=== PATIENT | female | born 1950 | race Caucasian/White ===

== ENCOUNTER 2018-07-01 14:18 | Inpatient (IN) ==
[2018-07-01] MEDS ORDERED: Ibuprofen 600 MG Tablet PO ONE (14:40)
[2018-07-01] MEDS ORDERED: Sod Chloride 0.9% Inj 1,000 ML IV.SIG ONE ×3 (14:40→15:55)
[2018-07-01 15:11] LABS: Baso % (Auto) 0.3 % (0.0-2.0); Eos # (Auto) 0.1 th/mm3 (0.0-0.4); Hematocrit 31.2 % (35.0-46.0); Hemoglobin 9.8 gm/dL (11.6-15.3); Lymph # (Auto) 1.1 th/mm3 (1.0-4.8); Lymph % (Auto) 10.9 % (9.0-44.0); Mean Corpuscular HGB Conc 31.4 % (32.0-36.0); Mean Corpuscular Hemoglobin 21.3 pg (27.0-34.0); Mean Platelet Volume 8.5 fL (7.0-11.0); Mono # (Auto) 0.7 th/mm3 (0.0-0.9); Mono % (Auto) 6.5 % (0.0-8.0); Neut # (Auto) 8.4 th/mm3 (1.8-7.7); Neut % (Auto) 81.3 % (16.0-70.0); Platelet Count 463 th/mm3 (150-450); Red Blood Count 4.59 mil/mm3 (4.00-5.30); White Blood Count 10.3 th/mm3 (4.0-11.0)
--- NOTE | 2018-07-01 15:11 | ED ---
HPI General Chief Complaint: Fall Stated Complaint: fell/hit head(-)loc/sob/rt/knee bruised @ noon Time Seen by Provider: 07/01/18 14:33 Source: patient and family Mode of arrival: ambulatory Limitations: no limitations and altered mental status History of Present Illness HPI Narrative: Patient experienced a mechanical fall today landing on the right knee and into the region of the right face. Multiple teeth were lost association with the fall. Patient complains of pain in the right upper lip and forehead. Patient also complains of pain in the right knee. There is no loss of consciousness. The patient has Parkinson's disease and is typically unsteady on feet. The sister provides much of the history. His sister also notes the patient evidently quit drinking alcohol about 1 month ago and has been laying in bed basically every single day. Patient has lost significant body weight. Additional complaints at the bedside include anxiety. MD complaint: fall and other Onset (ago): hour(s) (3.0) Fall from: standing Fall witnessed: yes, by family Place fall occurred: home Loss of consciousness: none Length of LOC: second(s) Prolonged down time: no Symptoms prior to fall: none Context: tripped/slipped and other (unstable gait 2/2 parkinson's disease) Location of injury: head, face and mouth Location of injury - extremities: Right: knee Severity: mild Related Data Home Medications Medication Instructions Recorded Confirmed Unable to Obtain Home Meds 07/01/18 07/01/18 Allergies Allergy/AdvReac Type Severity Reaction Status Date / Time aspirin Allergy Mild sick to Verified 07/01/18 14:49 stomach oxycodone Allergy Mild sick to Verified 07/01/18 14:49 stomach Penicillins Allergy Hives Verified 07/01/18 14:49 Review of Systems ROS Unobtainable unobtainable due to mental condition PMFSH Medical History Medical History Asthma (Acute) CVA (cerebral vascular accident) (Acute) Parkinson disease (Acute) Social History Social History Substance History: No History of Abuse Second Hand Smoke Exposure: No Smoking Status: Former smoker How Often Do You Have a Drink Containing Alcohol: Monthly or less Recent Travel in [facility] within the Last 8 Weeks: No Recent Out of Country Travel within the Last 8 Weeks: No Immunization History Tetanus Immunization: Unsure Hx Influenza Vaccine This Season: Yes Exam Narrative Exam Narrative: GENERAL: This 7-year-old female pleasant well-nourished well- developed, anxious, history provided mainly by family members SKIN: Focused skin assessment warm/dry. HEAD: Normocephalic. Minimal contusion about the right forehead. EYES: Pupils equal and round. No scleral icterus. No injection or drainage. ENT: Dental fractures are noted in the right upper premolar and molar region. Ecchymosis about the right upper lip. NECK: Trachea midline. No JVD. CARDIOVASCULAR: Tachycardia. Regular rhythm. RESPIRATORY: No accessory muscle use. Clear to auscultation. Breath sounds equal bilaterally. GASTROINTESTINAL: Abdomen soft, non-tender, nondistended. Hepatic and splenic margins not palpable. MUSCULOSKELETAL: Ecchymosis about the patella on the right side. No gross deformity otherwise NEUROLOGICAL: Minimal generalized tremor. Answers questions. No focal cranial nerve deficit. Moving all extremities. PSYCHIATRIC: Somewhat anxious. Cooperative. Course Initial Documented Vital Signs Temperature 98.3 F 07/01/18 14:25 Pulse Rate 74 07/01/18 14:25 Respiratory Rate 18 07/01/18 14:25 Blood Pressure 146/106 H 07/01/18 14:25 Pulse Oximetry 98 07/01/18 14:25 Last Documented Vital Signs Temperature 98.3 F 07/01/18 14:25 Pulse Rate 125 H 07/01/18 15:35 Respiratory Rate 20 07/01/18 15:35 Blood Pressure 168/91 H 07/01/18 15:35 Pulse Oximetry 97 07/01/18 15:35 Critical Care Time Critical Care Time: Yes Total Critical Care Time: 45 Attestation: Aggregate critical care time was 45 minutes. Time to perform other separately billable procedures was not included in the critical care time. My time did not include minutes spent treating any other patients simultaneously or on activities that did not directly contribute to the patient's treatment. The services I provided to this patient were to treat and/or prevent clinically significant deterioration that could result in: Cardiopulmonary arrest, metabolic disarray, arrhythmia I provided critical care services requiring my management, as noted below: Chart data review, documentation time, medication orders and management, vital sign assessments/reviewing monitor data, ordering and reviewing lab tests, ordering and interpreting/reviewing x-rays and diagnostic studies, care of the patient and discussion of the patient with the admitting physicians. Medical Decision Making MDM Narrative Medical decision making narrative: The patient returned from CT scans slightly increased in terms of anxiety. The heart rate has hovered around 120. The patient received 1 mg of Ativan which seems to have had almost a paradoxical effect. New complaints of cephalgia reported upon return. 0.5 mg hydromorphone ordered given age and concomitant anxiety. Unexpected marked hyperglycemia observed without anion gap acidosis. IV fluids started. ABG and beta hydroxybutyrate added on. Tachypnea with deep breaths observed at bedside at about 3:45 PM. We will continue to monitor closely. Chest x-ray completed at 4 PM. Will follow closely. Case discussed with hospitalist service and we will call back with results of ABG chest x-ray and beta hydroxybutyrate with plan for disposition pending results. ABG shows a pH of 7.53 with a PCO2 of 20 and bicarb of 17. Discussed with Dr. Khalil for [facility]. Pt to be placed in ICU. Lab Data Lab results reviewed: Yes I reviewed the patient's lab results. Lab results narrative: Anion gap is 14 Urinalysis shows no UTI EKG shows a sinus tachycardia rate of 116 ABG 7.53/ -5.9 po2 106 on RA Result diagrams: 07/01/18 15:00 07/01/18 15:00 Lab Results 07/01/18 07/01/18 07/01/18 Range/Units 15:00 15:00 15:33 CBC w Diff Slide review pending WBC 10.3 (4.0-11.0) th/mm3 RBC 4.59 (4.00-5.30) mil/mm3 Hgb 9.8 L (11.6-15.3) gm/dL Hct 31.2 L (35.0-46.0) % MCV 68.0 L (80.0-100.0) fL MCH 21.3 L (27.0-34.0) pg MCHC 31.4 L (32.0-36.0) % RDW 17.0 (11.6-17.2) % Plt Count 463 H (150-450) th/mm3 MPV 8.5 (7.0-11.0) fL Neut % (Auto) 81.3 H (16.0-70.0) % Lymph % (Auto) 10.9 (9.0-44.0) % [place] % (Auto) 6.5 (0.0-8.0) % Eos % (Auto) 1.0 (0.0-4.0) % Baso % (Auto) 0.3 (0.0-2.0) % Neut # (Auto) 8.4 H (1.8-7.7) th/mm3 Lymph # (Auto) 1.1 (1.0-4.8) th/mm3 [place] # (Auto) 0.7 (0.0-0.9) th/mm3 Eos # (Auto) 0.1 (0.0-0.4) th/mm3 Baso # (Auto) 0.0 (0.0-0.2) th/mm3 WBC Differential . Diff Scan Auto diff confirmed Differential Comment . Platelet Estimate High H (Normal) Platelet Morphology Normal (Normal) RBC Morphology Normal (Normal) Puncture Site Patient Temperature O2 Saturation (90-100) % ABG pH (7.380-7.420) ABG pCO2 (38-42) mmHg ABG pO2 (61-120) mmHg ABG HCO3 (22-26) mmol/L ABG O2 Content (12.0-20.0) Vol % ABG Base Excess (-2-2) mmol/L ABG Methemoglobin (0-2) % Todd Test Hemoglobin (12.0-16.0) G/DL Carboxyhemoglobin (0-4) % O2 Delivery Device Inspired O2 % Critical Value Sodium 122 L* (136-145) meq/L Potassium 3.4 L (3.5-5.1) meq/L Chloride 88 L (98-107) meq/L Carbon Dioxide 20.2 L (21.0-32.0) meq/L Anion Gap 14 (5-15) meq/L BUN 14 (7-18) mg/dL Creatinine 1.00 (0.50-1.00) mg/dL Estimated GFR 55 L (>89) mL/min Random Glucose 575 H* (74-106) mg/dL Calcium 8.8 (8.5-10.1) mg/dL Magnesium 1.7 (1.5-2.5) mg/dL Total Bilirubin 0.3 (0.2-1.0) mg/dL AST 15 (15-37) U/L ALT 28 (10-53) U/L Alkaline Phosphatase 203 H (45-117) U/L Total Creatine Kinase 51 (26-192) U/L Troponin I Less than 0.02 L (0.02-0.05) ng/mL Total Protein 8.1 (6.4-8.2) g/dL Albumin 3.5 (3.4-5.0) g/dL Beta-Hydroxybutyric Acd (0.00-0.39) mmol/L TSH 2.630 (0.358-3.740) uIU/mL Ur Collection Type Clean catch Urine Color Yellow (Yellw/Straw) Urine Clarity Clear (Clear) Urine pH 7.0 (5.0-8.5) Ur Specific [place] Less/equal 1.005 (1.002-1.035) Urine Protein 30 H (Neg-Trace) mg/dL Urine Glucose (UA) 1000 or greater H (Negative) mg/dL Urine Ketones 15 H (Negative) mg/dL Urine Occult Blood Trace (Negative) Urine Nitrate Negative (Negative) Urine Bilirubin Negative (Negative) Urine Urobilinogen 0.2 (Less than 2) mg/dL Ur Leukocyte Esterase Negative (Negative) Urine WBC 0-5 (0-5) /hpf Ur Squamous Epith Cells 0-5 (0-5) /hpf Micro UA Comment Culture not ind Urine Culture Comments Culture not ind Serum Alcohol (0-5) mg/dL 07/01/18 07/01/18 Range/Units 16:06 16:14 CBC w Diff WBC (4.0-11.0) th/mm3 RBC (4.00-5.30) mil/mm3 Hgb (11.6-15.3) gm/dL Hct (35.0-46.0) % MCV (80.0-100.0) fL MCH (27.0-34.0) pg MCHC (32.0-36.0) % RDW (11.6-17.2) % Plt Count (150-450) th/mm3 MPV (7.0-11.0) fL Neut % (Auto) (16.0-70.0) % Lymph % (Auto) (9.0-44.0) % [place] % (Auto) (0.0-8.0) % Eos % (Auto) (0.0-4.0) % Baso % (Auto) (0.0-2.0) % Neut # (Auto) (1.8-7.7) th/mm3 Lymph # (Auto) (1.0-4.8) th/mm3 [place] # (Auto) (0.0-0.9) th/mm3 Eos # (Auto) (0.0-0.4) th/mm3 Baso # (Auto) (0.0-0.2) th/mm3 WBC Differential Diff Scan Differential Comment Platelet Estimate (Normal) Platelet Morphology (Normal) RBC Morphology (Normal) Puncture Site Right radial Patient Temperature 98.6 O2 Saturation 96 (90-100) % ABG pH 7.53 H* (7.380-7.420) ABG pCO2 20 L* (38-42) mmHg ABG pO2 106 (61-120) mmHg ABG HCO3 17 L (22-26) mmol/L ABG O2 Content 12.6 (12.0-20.0) Vol % ABG Base Excess -5.9 L (-2-2) mmol/L ABG Methemoglobin 1.2 (0-2) % Todd Test Present Hemoglobin 9.2 L (12.0-16.0) G/DL Carboxyhemoglobin 2.0 (0-4) % O2 Delivery Device Room air Inspired O2 21 % Critical Value Yes Sodium (136-145) meq/L Potassium (3.5-5.1) meq/L Chloride (98-107) meq/L Carbon Dioxide (21.0-32.0) meq/L Anion Gap (5-15) meq/L BUN (7-18) mg/dL Creatinine (0.50-1.00) mg/dL Estimated GFR (>89) mL/min Random Glucose (74-106) mg/dL Calcium (8.5-10.1) mg/dL Magnesium (1.5-2.5) mg/dL Total Bilirubin (0.2-1.0) mg/dL AST (15-37) U/L ALT (10-53) U/L Alkaline Phosphatase (45-117) U/L Total Creatine Kinase (26-192) U/L Troponin I (0.02-0.05) ng/mL Total Protein (6.4-8.2) g/dL Albumin (3.4-5.0) g/dL Beta-Hydroxybutyric Acd 1.38 H (0.00-0.39) mmol/L TSH (0.358-3.740) uIU/mL Ur Collection Type Urine Color (Yellw/Straw) Urine Clarity (Clear) Urine pH (5.0-8.5) Ur Specific [place] (1.002-1.035) Urine Protein (Neg-Trace) mg/dL Urine Glucose (UA) (Negative) mg/dL Urine Ketones (Negative) mg/dL Urine Occult Blood (Negative) Urine Nitrate (Negative) Urine Bilirubin (Negative) Urine Urobilinogen (Less than 2) mg/dL Ur Leukocyte Esterase (Negative) Urine WBC (0-5) /hpf Ur Squamous Epith Cells (0-5) /hpf Micro UA Comment Urine Culture Comments Serum Alcohol Less than 3 (0-5) mg/dL Imaging Data Radiologist's impression: Chest X-Ray 07/01/18 14:40 CONCLUSION: No acute cardiopulmonary disease. Head CT 07/01/18 14:40 CONCLUSION: No acute intracranial abnormalities. Knee X-Ray 07/01/18 14:40 CONCLUSION: No acute abnormality. Discharge Plan Discharge Disposition Patient Disposition: 30 Still Patient Physicians Team ED Provider: Justin Knapp Primary Care Provider: Dimitri Minor Rxs /Orders / Referrals /Forms Prescriptions: No Action Unable to Obtain Home Meds RF: 0 Discharge Interventions Interventions: Vital Signs Last Done: 07/01/18 15:35 Status ED Status: Ready for Discharge
[2018-07-01 15:38] LABS: Bilirubin,Urine Negative (Negative); Clarity,Urine Clear (Clear); Color,Urine Yellow (Yellw/Straw); Leukocyte Esterase,Urine Negative (Negative); Nitrite,Urine Negative (Negative); Specific Gravity,Urine Less/Equal 1.005 (1.002-1.035); Urobilinogen,Urine 0.2 mg/dL (Less than 2)
--- NOTE | 2018-07-01 15:39 | CT ---
EXAM DATE: 07/01/2018 3:28 PM EDT AGE/SEX: 67 years / Female INDICATIONS: Fell and hit head. CLINICAL DATA: This is the patient's initial encounter. Patient reports that signs and symptoms have been present for 1 day and indicates a pain score of 4/10. MEDICAL/SURGICAL HISTORY: Asthma. Cerebrovascular disease. Parkinson's disease. None. RADIATION DOSE: 65.90 CTDI (mGy) COMPARISON: No prior exams available for comparison. TECHNIQUE: CT of the head without contrast. Using automated exposure control and adjustment of the mA and/or kV according to patient size, radiation dose was kept as low as reasonably achievable to ob tain optimal diagnostic quality images. DICOM format image data is available electronically for revi ew and comparison. FINDINGS: Cerebrum: The ventricles are normal for age. No evidence of midline shift, mass lesion, hemorrhage or acute infarction. No extraaxial fluid collections are seen. Posterior Fossa: The cerebellum and brainstem are intact. The 4th ventricle is midline. The cerebe llopontine angle is unremarkable. Extracranial: The visualized portion of the orbits is intact. Skull: The calvaria is intact. No evidence of skull fracture. CONCLUSION: No acute intracranial abnormalities. Electronically signed by: Carroll Mai MD 07/01/2018 3:37 PM EDT
[2018-07-01 15:45] LABS: Alanine Aminotransferase 28 U/L (10-53); Albumin 3.5 g/dL (3.4-5.0); Alkaline Phosphatase 203 U/L (45-117); Anion Gap 14 meq/L (5-15); Aspartate Aminotransferase 15 U/L (15-37); Blood Urea Nitrogen 14 mg/dL (7-18); Calcium 8.8 mg/dL (8.5-10.1); Carbon Dioxide 20.2 meq/L (21.0-32.0); Chloride 88 meq/L (98-107); Creatine Kinase 51 U/L (26-192); Glomerular Filtration Rate 55 mL/min (>89); Magnesium 1.7 mg/dL (1.5-2.5); Potassium 3.4 meq/L (3.5-5.1); Total Protein 8.1 g/dL (6.4-8.2)
[2018-07-01 15:47] LABS: Glucose,Random 575 mg/dL (74-106); Sodium 122 meq/L (136-145)
[2018-07-01] MEDS ORDERED: HYDROmorphone PF Inj 2 MG/ML Vial IV.PUSH ONE (15:51)
[2018-07-01 15:57] LABS: Squamous Epithelial Cell,Urine 0-5 /hpf (0-5); WBC,Urine 0-5 /hpf (0-5)
[2018-07-01 16:05] LABS: Platelet Morphology Normal (Normal); RBC Morphology Normal (Normal)
[2018-07-01 16:22] LABS: ABG Base Excess -5.9 mmol/L (-2-2); ABG PCO2 20 mmHg (38-42); ABG PO2 106 mmHg (61-120)
--- NOTE | 2018-07-01 16:29 | XR ---
EXAM DATE: 07/01/2018 4:11 PM EDT AGE/SEX: 67 years / Female INDICATIONS: Short of breath, fall. CLINICAL DATA: This is the patient's initial encounter. Patient reports that signs and symptoms have been present for 1 day and indicates a pain score of Nonresponsive. MEDICAL/SURGICAL HISTORY: Parkinson's disease. CVA. None. COMPARISON: [facility], XR CHEST PA AND LAT, 10/25/2016. . FINDINGS: A single AP view of the chest demonstrates the lungs to be symmetrically aerated without evidence of mass, infiltrate or effusion. The cardiomediastinal contours are unremarkable. Osseous structures a re intact. CONCLUSION: No acute cardiopulmonary disease. Electronically signed by: Pavan Smalls MD 07/01/2018 4:28 PM EDT
--- NOTE | 2018-07-01 16:31 | XR ---
EXAM DATE: 07/01/2018 4:12 PM EDT AGE/SEX: 67 years / Female INDICATIONS: Right knee pain post fall. CLINICAL DATA: This is the patient's initial encounter. Patient reports that signs and symptoms have been present for 1 day and indicates a pain score of Nonresponsive. MEDICAL/SURGICAL HISTORY: Parkinson's disease. CVA. None. COMPARISON: No prior exams available for comparison. FINDINGS: Bony structures are intact and in normal alignment. Joints are intact without dislocation or signifi cant arthropathy. Calcifications of the quadriceps tendon insertion site upon the patella noted. Osse ous density is normal. Soft tissues are unremarkable. Atherosclerotic calcifications of the poplitea l artery. No radiopaque foreign bodies seen. CONCLUSION: No acute abnormality. Electronically signed by: Pavan Smalls MD 07/01/2018 4:30 PM EDT
[2018-07-01 16:41] LABS: Beta Hydroxybutyric Acid 1.38 mmol/L (0.00-0.39)
[2018-07-01] MEDS ORDERED: Bisacodyl 10 MG Supp RECTAL PRN (16:44)
[2018-07-01] MEDS ORDERED: Dextrose 50% in Water 50 ML Vial IV.PUSH PRN (16:47)
[2018-07-01] MEDS ORDERED: LORazepam 1 MG Tablet PO PRN (16:50)
[2018-07-01 17:19] LABS: Amphetamine Screen,Urine Neg (Neg); Barbiturate Screen,Urine Neg (Neg); Cannabinoid Screen,Urine Neg (Neg); Cocaine Screen,Urine Neg (Neg)
[2018-07-01 17:27] LABS: Opiate Screen,Urine Neg (Neg)
[2018-07-01] MEDS: Insulin NovoLOG Aspart Correctional Sugar Inj SQ SCH ×2 (17:29→21:43)
--- NOTE | 2018-07-01 17:32 | P.HP ---
History of Present Illness Primary Care Physician: Dimitri Minor MD Chief Complaint: Mechanical fall History of Present Illness: This is a 67-year-old female patient with a known medical history of Parkinson' s disease, diabetes, hypertension and history of alcohol abuse who presented to the ED status post mechanical fall at home. Patient is seen in room, with bilateral wrist restraints, and sister at bedside providing medical history and events leading up to presentation. Patient is alert and oriented 1 , confused to situation and place. Patient is able to answer some questions although is significantly restless in the bed. Supposedly patient was going into the bathroom and tripped, falling into the door and hitting her head, there are no reports of any loss of consciousness. Patient did lose multiple teeth secondary to fall. Her upper lip and forehead are also with abrasions. Patient complains of a headache. Does have a history of Parkinson's disease, there are reports of unsteadiness on her feet. She does live at home with her . Supposedly patient quit drinking 6 weeks ago, has been lethargic, and depressed has not been eating or drinking and when she does eat, while she eats is junk food. There is questionable compliance of her medications. Her family reports a 20-pound weight loss in the past month. Supposedly patient follows with an outpatient neurologist for management of her Parkinson's disease although is unaware of name. There are no reports of any illness including fever, chills, cough, abdominal pain, nausea, vomiting, diarrhea or dysuria. Baseline patient does not communicate and is reclusive. Only complaints lately have been headache status post fall as well as intermittent shortness of breath. PCP is Dr. Simpson, last seen roughly a month and half ago. - Diagnosis (1) Acute metabolic encephalopathy (2) Hyperglycemia (3) Type 2 diabetes mellitus (4) Parkinsons disease Inpatient Certification: I certify that the inpatient services were ordered in accordance with Medicare regulations governing the order. This includes certification that hospital inpatient services are reasonable and necessary and in the case of services not specified as inpatient-only under 42 CFR 419.22(n), that they are appropriately provided as inpatient services in accordance to with the 2-midnight benchmark under 43 CFR 412.3(e) Estimated Total Length of Stay (Days): 4 Plans for Post Hospital Care: Not yet determined Review of Systems All other systems reviewed negative except as stated in HPI, unobtainable due to mental condition PMFSH - History History Provided By: Patient, Family Member - Medical History Medical History: Medical History (Last Updated 07/01/18 @ 17:40 by Debbie Arevalo) Asthma CAD (coronary artery disease) CVA (cerebral vascular accident) Diabetes Hypertension Parkinson disease - Surgical History Surgical History: Surgical History (Last Updated 07/01/18 @ 17:40 by Debbie Arevalo) History of endarterectomy - Family History Family History: Family History (Last Updated 07/01/18 @ 17:41 by Debbie Arevalo) Father Prostate cancer Mother Lung cancer - Tobacco History Second Hand Smoke Exposure: No Tobacco Use In Past 30 Days: No Smoking Status: Former smoker Tobacco Type: Cigarettes - Alcohol History How Often Do You Have a Drink Containing Alcohol: Monthly or less - Substance Use History Substance History: Past History (Alcohol, quit 6 weeks ago) - Travel History Recent Travel in the [place] Within the Last 8 Weeks: No Recent Travel Out of the Country Within the Last 8 Weeks: No - Immunization History Tetanus Immunization: Unsure Hx Influenza Vaccine This Season: Yes Medications and Allergies Active Medications: Active Medications Al Hydroxide/Mg Hydroxide (Milk Of Magnesia Liq) 30 ml PO Q12H PRN PRN Reason: Mild Constipation Bisacodyl (Dulcolax Supp) 10 mg RECTAL DAILY PRN PRN Reason: SEVERE CONSITIPATION Carvedilol (Coreg) 3.125 mg PO BID [place] Clonidine HCl (Catapres) 0.1 mg PO Q6H PRN PRN Reason: SEE LABEL COMMENTS Dextrose (D50w Vial) 50 ml IV.PUSH UNSCH PRN PRN Reason: PER HYPOGLYCEMIA PROTOCOL Glucagon (Glucagon Inj) 1 mg OTHER PRN PRN PRN Reason: for Hypoglycemia Protocol Sodium Chloride (Ns Inj) 1,000 mls @ 100 mls/hr IV.CONT .Q10H [place] Insulin Aspart (Novolog Insulin Correctional Sugar Inj) 0 unit SQ ACHS [place]; Protocol Lactulose (Lactulose Liq) 30 ml PO DAILY PRN PRN Reason: SEVERE CONSITIPATION Lorazepam (Ativan) 1 mg PO Q6H PRN PRN Reason: ANXIETY Sennosides (Senokot) 17.2 mg PO Q12H PRN PRN Reason: Moderate Constipation Sodium Chloride (Ns Flush) 2 ml IV.FLUSH PRN PRN PRN Reason: FLUSH AFTER USING IV ACCESS Allergies Allergy/AdvReac Type Severity Reaction Status Date / Time aspirin Allergy Mild sick to Verified 07/01/18 14:49 stomach oxycodone Allergy Mild sick to Verified 07/01/18 14:49 stomach Penicillins Allergy Hives Verified 07/01/18 14:49 Home Medications Medication Instructions Recorded Confirmed Type Unable to Obtain Home Meds 07/01/18 07/01/18 History Exam Vital signs: Vital Signs 07/01/18 14:25 07/01/18 14:45 07/01/18 15:35 Temperature 98.3 F Pulse Rate 74 115 H 125 H Respiratory Rate 18 18 20 Blood Pressure 146/106 H 172/86 H 168/91 H Pulse Oximetry 98 99 97 Intake & Output 06/30/18 07/01/18 07/01/18 18:59 06:59 18:59 Intake Total 1000 / 1000 Balance 1000 / 1000 Weight 59 kg Intake: IV 1000 / 1000 NS Inj 1,000 ML @ Wide Open IV. 1000 / 1000 SIG BOLUS ONE Rx#:[id number] Narrative: GENERAL: Well-developed, well-nourished female patient who is restless in bilateral wrist restraints. Alert, oriented x 1. Not cooperative. SKIN: Warm and dry. Upper lip abrasion, forehead abrasion. HEAD: Normocephalic. EYES: Right eye dilated 4 mm, history of CVA, this is chronic for patient. No scleral icterus. No injection or drainage. ENT: No nasal bleeding or discharge. Mucous membranes pink and moist. NECK: Supple. Trachea midline. CARDIOVASCULAR: Regular rate and rhythm. S1, S2 noted. No murmur appreciated. RESPIRATORY: No accessory muscle use. Clear to auscultation. Breath sounds equal bilaterally. GASTROINTESTINAL: Abdomen soft, non-tender, nondistended. Normoactive bowel sounds x4. MUSCULOSKELETAL: No obvious deformities. Extremities without clubbing, cyanosis , or edema. NEUROLOGICAL: Awake and alert. Confused. Motor grossly within normal limits. Spontaneous movements. - Constitutional no acute distress - Routine HEENT Exam Head: Present: normocephalic Results - Labs CBC & Chem 7: 07/01/18 15:00 07/01/18 15:00 Labs: Laboratory Results - last 24 hr 07/01/18 07/01/18 07/01/18 15:00 15:00 15:33 CBC w Diff Slide review pending WBC 10.3 RBC 4.59 Hgb 9.8 L Hct 31.2 L MCV 68.0 L MCH 21.3 L MCHC 31.4 L RDW 17.0 Plt Count 463 H MPV 8.5 Neut % (Auto) 81.3 H Lymph % (Auto) 10.9 [place] % (Auto) 6.5 Eos % (Auto) 1.0 Baso % (Auto) 0.3 Neut # (Auto) 8.4 H Lymph # (Auto) 1.1 [place] # (Auto) 0.7 Eos # (Auto) 0.1 Baso # (Auto) 0.0 WBC Differential . Diff Scan Auto diff confirmed Differential Comment . Platelet Estimate High H Platelet Morphology Normal RBC Morphology Normal Puncture Site Patient Temperature O2 Saturation ABG pH ABG pCO2 ABG pO2 ABG HCO3 ABG O2 Content ABG Base Excess ABG Methemoglobin Todd Test Hemoglobin Carboxyhemoglobin O2 Delivery Device Inspired O2 Critical Value Sodium 122 L* Potassium 3.4 L Chloride 88 L Carbon Dioxide 20.2 L Anion Gap 14 BUN 14 Creatinine 1.00 Estimated GFR 55 L Random Glucose 575 H* Calcium 8.8 Magnesium 1.7 Total Bilirubin 0.3 AST 15 ALT 28 Alkaline Phosphatase 203 H Total Creatine Kinase 51 Troponin I Less than 0.02 L Total Protein 8.1 Albumin 3.5 Beta-Hydroxybutyric Acd TSH 2.630 Ur Collection Type Clean catch Urine Color Yellow Urine Clarity Clear Urine pH 7.0 Ur Specific [place] Less/equal 1.005 Urine Protein 30 H Urine Glucose (UA) 1000 or greater H Urine Ketones 15 H Urine Occult Blood Trace Urine Nitrate Negative Urine Bilirubin Negative Urine Urobilinogen 0.2 Ur Leukocyte Esterase Negative Urine WBC 0-5 Ur Squamous Epith Cells 0-5 Micro UA Comment Culture not ind Urine Culture Comments Culture not ind Urine Opiates Screen Ur Barbiturates Screen Ur Amphetamines Screen U Benzodiazepines Scrn Urine Cocaine Screen U Cannabinoids Screen Serum Alcohol 07/01/18 07/01/18 07/01/18 15:33 16:06 16:14 CBC w Diff WBC RBC Hgb Hct MCV MCH MCHC RDW Plt Count MPV Neut % (Auto) Lymph % (Auto) [place] % (Auto) Eos % (Auto) Baso % (Auto) Neut # (Auto) Lymph # (Auto) [place] # (Auto) Eos # (Auto) Baso # (Auto) WBC Differential Diff Scan Differential Comment Platelet Estimate Platelet Morphology RBC Morphology Puncture Site Right radial Patient Temperature 98.6 O2 Saturation 96 ABG pH 7.53 H* ABG pCO2 20 L* ABG pO2 106 ABG HCO3 17 L ABG O2 Content 12.6 ABG Base Excess -5.9 L ABG Methemoglobin 1.2 Todd Test Present Hemoglobin 9.2 L Carboxyhemoglobin 2.0 O2 Delivery Device Room air Inspired O2 21 Critical Value Yes Sodium Potassium Chloride Carbon Dioxide Anion Gap BUN Creatinine Estimated GFR Random Glucose Calcium Magnesium Total Bilirubin AST ALT Alkaline Phosphatase Total Creatine Kinase Troponin I Total Protein Albumin Beta-Hydroxybutyric Acd 1.38 H TSH Ur Collection Type Urine Color Urine Clarity Urine pH Ur Specific [place] Urine Protein Urine Glucose (UA) Urine Ketones Urine Occult Blood Urine Nitrate Urine Bilirubin Urine Urobilinogen Ur Leukocyte Esterase Urine WBC Ur Squamous Epith Cells Micro UA Comment Urine Culture Comments Urine Opiates Screen Neg Ur Barbiturates Screen Neg Ur Amphetamines Screen Neg U Benzodiazepines Scrn Neg Urine Cocaine Screen Neg U Cannabinoids Screen Neg Serum Alcohol Less than 3 - Imaging Impressions Chest X-Ray 07/01/18 14:40 CONCLUSION: No acute cardiopulmonary disease. Head CT 07/01/18 14:40 CONCLUSION: No acute intracranial abnormalities. Knee X-Ray 07/01/18 14:40 CONCLUSION: No acute abnormality. Caprini VTE Risk Assessment Caprini VTE Risk Assessment: Moderate/High Risk (score >= 2) Caprini Risk Assessment Model: Point Value = 1 Point Value = 2 Point Value = 3 Point Value = 5 Age 41-60 Minor surgery BMI > 25 kg/m2 Swollen legs Varicose veins or History of unexplained or recurrent spontaneous Oral contraceptives or hormone replacement Sepsis (< 1 month) Serious lung disease, including pneumonia (< 1 month) Abnormal pulmonary function Acute myocardial infarction Congestive heart failure (< 1 month) History of inflammatory bowel disease Medical patient at bed rest Age 61-74 Arthroscopic surgery Major open surgery (> 45 min) Laparoscopic surgery (> 45 min) Malignancy Confined to bed (> 72 hours) Immobilizing plaster cast Central venous access Age >= 75 History of VTE Family history of VTE Factor V Leiden Prothrombin [id number] Lupus anticoagulant Anticardiolipin antibodies Elevated serum homocysteine Heparin-induced thrombocytopenia Other congenital or acquired thrombophilia Stroke (< 1 month) Elective arthroplasty Hip, pelvis, or leg fracture Acute spinal cord injury (< 1 month) Prophylaxis Regimen: Total Risk Factor Score Risk Level Prophylaxis Regimen 0-1 Low Early ambulation 2 Moderate Order ONE of the following: *Sequential Compression Device (SCD) *Heparin 5000 units SQ BID 3-4 Higher Order ONE of the following medications: *Heparin 5000 units SQ TID *Enoxaparin/Lovenox 40 mg SQ daily (WT < 150 kg, CrCl > 30 mL/min) *Enoxaparin/Lovenox 30 mg SQ daily (WT < 150 kg, CrCl > 10-29 mL/min) *Enoxaparin/Lovenox 30 mg SQ BID (WT < 150 kg, CrCl > 30 mL/min) AND/OR *Sequential Compression Device (SCD) 5 or more Highest Order ONE of the following medications: *Heparin 5000 units SQ TID (Preferred with Epidurals) *Enoxaparin/Lovenox 40 mg SQ daily (WT < 150 kg, CrCl > 30 mL/min) *Enoxaparin/Lovenox 30 mg SQ daily (WT < 150 kg, CrCl > 10-29 mL/min) *Enoxaparin/Lovenox 30 mg SQ BID (WT < 150 kg, CrCl > 30 mL/min) AND *Sequential Compression Device (SCD) Assessment and Plan - Assessment (1) Acute metabolic encephalopathy Code(s): G93.41 - Metabolic encephalopathy Status: Acute (2) Hyperglycemia Code(s): R73.9 - Hyperglycemia, unspecified Status: Acute (3) Type 2 diabetes mellitus Code(s): E11.9 - Type 2 diabetes mellitus without complications Status: Acute (4) Parkinsons disease Code(s): G20 - Parkinson's disease Status: Acute - Plan This is a 67-year-old female patient with a known medical history of Parkinson' s disease, diabetes, hypertension and history of alcohol abuse who presented to the ED status post mechanical fall at home. Patient is seen in room, with bilateral wrist restraints, and sister at bedside providing medical history and events leading up to presentation. Acute metabolic encephalopathy Status post mechanical fall at home secondary to above History of alcoholism rule out Wernicke's encephalopathy Rule out normal pressure hydrocephalus -Head CT on presentation negative. Awaiting Head CT for imagining of facial bones. Will monitor. -Obtain MRI brain when patient is more cooperative. -ABG reviewed and showing alkalosis ph7.5, Co2 20. -Will add Thiamine and folate and ammonia to labs. Follow. -Ativan and Benadryl given in ED. Appears that Ativan had a paroxysmal effect. Will attempt Haldol and Seroquel. -Toxicology screen negative. UA negative. No reports of alcohol x 6 weeks. Monitor for any withdrawals. -Check ECHO, rule out any cardiomyopathy secondary to history of alcoholism. -Patient is tachycardic on monitor, placed on Coreg BID. Will continue cardiac telemetry. -PT evaluation when able and cooperative. Pending eval. -Supportive care. Severe hyponatremia -Sodium 122 on presentation. Given 3 L NS bolus in ED. -Repeat BMP at 1800. Follow. Slowly hydrate with continuous IVF. -Follow BMP. Elevated glucose, with elevated beta-hydrogenase 1.38 and closed anion gap Uncontrolled type 2 diabetes mellitus, chronic -Not in DKA. Will continue ACCU check ACHS, monitor BS trends. -BS on presentation 575, now down to 300's. Will continue to monitor trends. -ADA diet when able to tolerate PO. Monitor for aspiration. -Add Hemoglobin a1c. Follow. History of Parkinson's disease -Follows with a neurologist, although unaware of name. -Request placed for obtaining medication list from pharmacy. Symptoms could be medication side effect related. -For now, supportive care. Close monitoring. DVT Prophylaxis: SCDs.
[2018-07-01] MEDS: Haloperidol Inj 5 MG/ML Ampul IM PRN (18:12)
[2018-07-01] MEDS: Sod Chloride 0.9% Inj 1,000 ML IV.CONT SCH (18:26)
[2018-07-01 19:14] LABS: Calcium 7.8 mg/dL (8.5-10.1); Carbon Dioxide 21.8 meq/L (21.0-32.0); Potassium 3.5 meq/L (3.5-5.1)
[2018-07-01] MEDS: QUEtiapine 25 MG Tablet PO SCH (21:42)
[2018-07-01 23:36] LABS: Folate 13.7 ng/mL (3.1-17.5)
[2018-07-02] MEDS: Sod Chloride 0.9% Inj 1,000 ML IV.CONT SCH (02:19)
[2018-07-02] MEDS: Haloperidol Inj 5 MG/ML Ampul IM PRN ×2 (04:43→13:46)
[2018-07-02 05:00] LABS: Calcium 8.5 mg/dL (8.5-10.1); Carbon Dioxide 23.3 meq/L (21.0-32.0); Potassium 4.3 meq/L (3.5-5.1)
[2018-07-02] MEDS: Insulin NovoLOG Aspart Correctional Sugar Inj SQ SCH ×4 (08:31→21:03)
[2018-07-02] MEDS: QUEtiapine 25 MG Tablet PO SCH ×2 (08:33→21:04)
--- NOTE | 2018-07-02 10:03 | P.PN ---
Subjective Interval history: Follow-up acute metabolic encephalopathy, hyponatremia and elevated glucose. Patient seen and examined, lying in bed with family at bedside. Patient is still in bilateral wrist restraints. Is more awake today, able to answer questions and follow commands although still restless in the bed. Awaiting MRI as well as facial CT. Overnight blood sugar has improved. Although still elevated, will place on long-acting Levemir. Hyponatremia improved overnight. We will continue to monitor. Physical Exam Vital signs: Vital Signs 07/01/18 14:25 07/01/18 14:45 07/01/18 15:35 Temperature 98.3 F Pulse Rate 74 115 H 125 H Respiratory Rate 18 18 20 Blood Pressure 146/106 H 172/86 H 168/91 H Pulse Oximetry 98 99 97 07/01/18 20:00 07/01/18 21:04 07/02/18 00:00 Temperature 99.7 F H 97.7 F Pulse Rate 130 H 86 Respiratory Rate 29 H 18 Blood Pressure 148/78 H 120/59 L Pulse Oximetry 99 99 07/02/18 04:00 07/02/18 08:00 Temperature 98.5 F 98.1 F Pulse Rate 104 H Respiratory Rate 26 H Blood Pressure 111/64 Pulse Oximetry 100 Intake & Output 07/01/18 07/02/18 07/02/18 18:59 06:59 18:59 Intake Total 3000 / 3000 1000 / 1000 480 / 480 Output Total 600 / 600 Balance 3000 / 3000 1000 / 1000 -120 / -120 Weight 59 kg 59.2 kg Intake: IV 3000 / 3000 1000 / 1000 NS Inj 1,000 ML @ 100 mls/hr IV 1000 / 1000 .CONT .Q10H LLOYD Rx#:[id number] NS Inj 1,000 ML @ Wide Open IV. 3000 / 3000 SIG BOLUS ONE Rx#:[id number] Oral 480 / 480 Output: Urine 600 / 600 Narrative: GENERAL: Well-developed, well-nourished disheveled female patient who is lying in bed restless with bilateral wrist restraints. SKIN: Warm and dry. No rash. Upper lip abrasion. HEAD: Normocephalic. Atraumatic. EYES: Right pupil 4 mm, this is chronic for the patient is reactive. Left pupil 2 mm and reactive. No scleral icterus. No injection or drainage. ENT: No nasal bleeding or discharge. Mucous membranes pink and moist. NECK: Supple. Trachea midline. CARDIOVASCULAR: Regular rate and rhythm. S1, S2 noted. No murmur appreciated. RESPIRATORY: No accessory muscle use. Clear to auscultation. Breath sounds equal bilaterally. GASTROINTESTINAL: Abdomen soft, non-tender, nondistended. Normoactive bowel sounds x4. MUSCULOSKELETAL: No obvious deformities. Extremities without clubbing, cyanosis , or edema. NEUROLOGICAL: Awake and alert. No obvious cranial nerve deficits. Motor grossly within normal limits. 5/5 muscle strength in bilateral upper and lower extremities. Results - Labs CBC & Chem 7: 07/02/18 10:20 07/02/18 04:23 Laboratory Results - last 24 hr 07/01/18 07/01/18 07/01/18 15:00 15:00 15:33 CBC w Diff Slide review pending WBC 10.3 RBC 4.59 Hgb 9.8 L Hct 31.2 L MCV 68.0 L MCH 21.3 L MCHC 31.4 L RDW 17.0 Plt Count 463 H MPV 8.5 Neut % (Auto) 81.3 H Lymph % (Auto) 10.9 Ralls % (Auto) 6.5 Eos % (Auto) 1.0 Baso % (Auto) 0.3 Neut # (Auto) 8.4 H Lymph # (Auto) 1.1 Ralls # (Auto) 0.7 Eos # (Auto) 0.1 Baso # (Auto) 0.0 WBC Differential . Diff Scan Auto diff confirmed Differential Comment . Platelet Estimate High H Platelet Morphology Normal RBC Morphology Normal Puncture Site Patient Temperature O2 Saturation ABG pH ABG pCO2 ABG pO2 ABG HCO3 ABG O2 Content ABG Base Excess ABG Methemoglobin Todd Test Hemoglobin Carboxyhemoglobin O2 Delivery Device Inspired O2 Critical Value Sodium 122 L* Potassium 3.4 L Chloride 88 L Carbon Dioxide 20.2 L Anion Gap 14 BUN 14 Creatinine 1.00 Estimated GFR 55 L POC Glucose Random Glucose 575 H* Calcium 8.8 Magnesium 1.7 Total Bilirubin 0.3 AST 15 ALT 28 Alkaline Phosphatase 203 H Ammonia Total Creatine Kinase 51 Troponin I Less than 0.02 L Total Protein 8.1 Albumin 3.5 Folate Beta-Hydroxybutyric Acd TSH 2.630 Ur Collection Type Clean catch Urine Color Yellow Urine Clarity Clear Urine pH 7.0 Ur Specific Dell Less/equal 1.005 Urine Protein 30 H Urine Glucose (UA) 1000 or greater H Urine Ketones 15 H Urine Occult Blood Trace Urine Nitrate Negative Urine Bilirubin Negative Urine Urobilinogen 0.2 Ur Leukocyte Esterase Negative Urine WBC 0-5 Ur Squamous Epith Cells 0-5 Micro UA Comment Culture not ind Urine Culture Comments Culture not ind Urine Opiates Screen Ur Barbiturates Screen Ur Amphetamines Screen U Benzodiazepines Scrn Urine Cocaine Screen U Cannabinoids Screen Serum Alcohol 07/01/18 07/01/18 07/01/18 15:33 16:06 16:14 CBC w Diff WBC RBC Hgb Hct MCV MCH MCHC RDW Plt Count MPV Neut % (Auto) Lymph % (Auto) Ralls % (Auto) Eos % (Auto) Baso % (Auto) Neut # (Auto) Lymph # (Auto) Ralls # (Auto) Eos # (Auto) Baso # (Auto) WBC Differential Diff Scan Differential Comment Platelet Estimate Platelet Morphology RBC Morphology Puncture Site Right radial Patient Temperature 98.6 O2 Saturation 96 ABG pH 7.53 H* ABG pCO2 20 L* ABG pO2 106 ABG HCO3 17 L ABG O2 Content 12.6 ABG Base Excess -5.9 L ABG Methemoglobin 1.2 Todd Test Present Hemoglobin 9.2 L Carboxyhemoglobin 2.0 O2 Delivery Device Room air Inspired O2 21 Critical Value Yes Sodium Potassium Chloride Carbon Dioxide Anion Gap BUN Creatinine Estimated GFR POC Glucose Random Glucose Calcium Magnesium Total Bilirubin AST ALT Alkaline Phosphatase Ammonia Total Creatine Kinase Troponin I Total Protein Albumin Folate Beta-Hydroxybutyric Acd 1.38 H TSH Ur Collection Type Urine Color Urine Clarity Urine pH Ur Specific Dell Urine Protein Urine Glucose (UA) Urine Ketones Urine Occult Blood Urine Nitrate Urine Bilirubin Urine Urobilinogen Ur Leukocyte Esterase Urine WBC Ur Squamous Epith Cells Micro UA Comment Urine Culture Comments Urine Opiates Screen Neg Ur Barbiturates Screen Neg Ur Amphetamines Screen Neg U Benzodiazepines Scrn Neg Urine Cocaine Screen Neg U Cannabinoids Screen Neg Serum Alcohol Less than 3 07/01/18 07/01/18 07/01/18 18:20 18:20 20:58 CBC w Diff WBC RBC Hgb Hct MCV MCH MCHC RDW Plt Count MPV Neut % (Auto) Lymph % (Auto) Ralls % (Auto) Eos % (Auto) Baso % (Auto) Neut # (Auto) Lymph # (Auto) Ralls # (Auto) Eos # (Auto) Baso # (Auto) WBC Differential Diff Scan Differential Comment Platelet Estimate Platelet Morphology RBC Morphology Puncture Site Patient Temperature O2 Saturation ABG pH ABG pCO2 ABG pO2 ABG HCO3 ABG O2 Content ABG Base Excess ABG Methemoglobin Todd Test Hemoglobin Carboxyhemoglobin O2 Delivery Device Inspired O2 Critical Value Sodium 132 L D Potassium 3.5 Chloride 99 D Carbon Dioxide 21.8 Anion Gap 11 BUN 11 Creatinine 0.96 Estimated GFR 58 L POC Glucose 257 H Random Glucose 305 H D Calcium 7.8 L D Magnesium Total Bilirubin AST ALT Alkaline Phosphatase Ammonia 25 Total Creatine Kinase Troponin I Total Protein Albumin Folate 13.7 Beta-Hydroxybutyric Acd TSH Ur Collection Type Urine Color Urine Clarity Urine pH Ur Specific Dell Urine Protein Urine Glucose (UA) Urine Ketones Urine Occult Blood Urine Nitrate Urine Bilirubin Urine Urobilinogen Ur Leukocyte Esterase Urine WBC Ur Squamous Epith Cells Micro UA Comment Urine Culture Comments Urine Opiates Screen Ur Barbiturates Screen Ur Amphetamines Screen U Benzodiazepines Scrn Urine Cocaine Screen U Cannabinoids Screen Serum Alcohol 07/02/18 07/02/18 04:23 07:30 CBC w Diff WBC RBC Hgb Hct MCV MCH MCHC RDW Plt Count MPV Neut % (Auto) Lymph % (Auto) Ralls % (Auto) Eos % (Auto) Baso % (Auto) Neut # (Auto) Lymph # (Auto) Ralls # (Auto) Eos # (Auto) Baso # (Auto) WBC Differential Diff Scan Differential Comment Platelet Estimate Platelet Morphology RBC Morphology Puncture Site Patient Temperature O2 Saturation ABG pH ABG pCO2 ABG pO2 ABG HCO3 ABG O2 Content ABG Base Excess ABG Methemoglobin Todd Test Hemoglobin Carboxyhemoglobin O2 Delivery Device Inspired O2 Critical Value Sodium 145 D Potassium 4.3 D Chloride 115 H D Carbon Dioxide 23.3 Anion Gap 7 BUN 35 H Creatinine 1.60 H Estimated GFR 32 L POC Glucose 331 H Random Glucose 107 H D Calcium 8.5 Magnesium Total Bilirubin AST ALT Alkaline Phosphatase Ammonia Total Creatine Kinase Troponin I Total Protein Albumin Folate Beta-Hydroxybutyric Acd TSH Ur Collection Type Urine Color Urine Clarity Urine pH Ur Specific Dell Urine Protein Urine Glucose (UA) Urine Ketones Urine Occult Blood Urine Nitrate Urine Bilirubin Urine Urobilinogen Ur Leukocyte Esterase Urine WBC Ur Squamous Epith Cells Micro UA Comment Urine Culture Comments Urine Opiates Screen Ur Barbiturates Screen Ur Amphetamines Screen U Benzodiazepines Scrn Urine Cocaine Screen U Cannabinoids Screen Serum Alcohol - Imaging Impressions Chest X-Ray 07/01/18 14:40 CONCLUSION: No acute cardiopulmonary disease. Head CT 07/01/18 14:40 CONCLUSION: No acute intracranial abnormalities. Knee X-Ray 07/01/18 14:40 CONCLUSION: No acute abnormality. Assessment and Plan - Assessment (1) Acute metabolic encephalopathy Code(s): G93.41 - Metabolic encephalopathy Status: Acute (2) Hyperglycemia Code(s): R73.9 - Hyperglycemia, unspecified Status: Acute (3) Type 2 diabetes mellitus Code(s): E11.9 - Type 2 diabetes mellitus without complications Status: Acute (4) Parkinsons disease Code(s): G20 - Parkinson's disease Status: Acute - Plan This is a 67-year-old female patient with a known medical history of Parkinson' s disease, diabetes, hypertension and history of alcohol abuse who presented to the ED status post mechanical fall at home. Patient is seen in room, with bilateral wrist restraints, and sister at bedside providing medical history and events leading up to presentation. Acute metabolic encephalopathy Status post mechanical fall at home secondary to above History of alcoholism rule out Wernicke's encephalopathy Rule out normal pressure hydrocephalus -Patient presented with altered mental status with confusion as well as restlessness. Symptoms are mildly improving overnight. -Head CT on presentation negative. Awaiting Head CT for imagining of facial bones as well as brain MRI. Will monitor. -ABG reviewed and showing alkalosis ph7.5, Co2 20. Patient has been on room air with adequate oxygen saturations. -Will add Thiamine and folate, follow. Ammonia normal. -Ativan and Benadryl given in ED. Appears that Ativan had a paroxysmal effect. Patient doing well on Haldol and Seroquel. Will continue. Monitor for any lethargy. -Toxicology screen negative. UA negative. No reports of alcohol x 6 weeks. Monitor for any withdrawals. -Check ECHO, rule out any cardiomyopathy secondary to history of alcoholism. Awaiting results. Follow. -Patient was tachycardic on presentation, controlled on Coreg BID. Will continue cardiac telemetry. -PT evaluation when able and cooperative. Pending eval. -Will await MRI results, may need to consult neurologist for further input regarding encephalopathy. -Supportive care. Severe hyponatremia. Resolved. -Sodium 122 on presentation. Given 3 L NS bolus in ED. resolved overnight, and a 145 today. -Decrease IVF to 1/2 NS at 42 ml/hr. -Follow BMP. Acute kidney injury Creatinine worsened overnight to 1.6. Will monitor BMP. Continue gentle hydration. Elevated glucose, with elevated beta-hydrogenase 1.38 and closed anion gap. Improved. Uncontrolled type 2 diabetes mellitus, chronic -Not in DKA. Will continue ACCU check ACHS, monitor BS trends. -BS on presentation 575, now down to 300's. Will continue to monitor trends. And Levemir. -ADA diet. Tolerating p.o. intake well. -Added Hemoglobin a1c. Follow. History of Parkinson's disease -Patient is more awake today, states that she does not have a history of Parkinson's disease although family believes she does have a history. -Follows with a neurologist, although unaware of name. -Medication list reconciled from home, she has not been prescribed anything for Parkinson's disease. -For now, supportive care. Close monitoring. History of alcohol abuse -Patient and family denies any known alcohol abuse since 6 weeks ago. - does state that patient has been having intermittent fainting episodes but has not had one for over 6 weeks now. Suspect secondary to alcohol. -Encourage cessation. DVT Prophylaxis: SCDs. Discharge Planning: Awaiting clinical improvement.
[2018-07-02 10:28] LABS: Hematocrit 25.5 % (35.0-46.0); Hemoglobin 8.3 gm/dL (11.6-15.3); Mean Corpuscular HGB Conc 32.4 % (32.0-36.0); Mean Corpuscular Hemoglobin 21.6 pg (27.0-34.0); Mean Corpuscular Volume 66.7 fL (80.0-100.0); Mean Platelet Volume 7.9 fL (7.0-11.0); Platelet Count 357 th/mm3 (150-450); Red Blood Count 3.83 mil/mm3 (4.00-5.30); Red Cell Distribution Width 17.2 % (11.6-17.2); White Blood Count 7.6 th/mm3 (4.0-11.0)
[2018-07-02] MEDS: Sodium Chloride 0.45 % Inj 1,000 ML IV.CONT SCH (11:04)
[2018-07-02] MEDS ORDERED: Gadobutrol PF 2 MMOL/2 ML Vial (for RAD) IV.SIG ONE (14:23)
--- NOTE | 2018-07-02 14:50 | MR ---
EXAM DATE: 07/02/2018 2:40 PM EDT AGE/SEX: 67 years / Female INDICATIONS: Hydrocephalus. Patient fell yesterday. CLINICAL DATA: This is the patient's subsequent encounter. Patient reports that signs and symptoms h ave been present for 2 days and indicates a pain score of 0/10. MEDICAL/SURGICAL HISTORY: Parkinson's disease. Diabetes. Hypertension. CVA. Umbilical herni a repair. Carotid artery stent. COMPARISON: [facility], CT HEAD W/O CONTRAST, 07/01/2018.. . TECHNIQUE: Multiplanar, multisequence examination of the brain was performed without and with 6 ml Ga davist (gadobutrol) contrast as a single exam dose. FINDINGS: Cerebrum: The ventricles are normal for age. No evidence of midline shift, mass lesion, hemorrhage or acute infarction. No extraaxial fluid collections are seen. The pituitary gland and suprasellar cistern are normal in configuration. White Matter: Scattered foci of high FLAIR signal abnormality involving the periventricular white ma tter of both cerebral hemispheres.. Posterior Fossa: The cerebellum and brainstem are intact. The 4th ventricle is midline. The cerebel lopontine angle is unremarkable. The cerebellar tonsils are normal in position. Diffusion Imaging: No focal areas of restricted diffusion are seen. No evidence of acute infarction . Extracranial: The visualized portions of the orbits and paranasal sinuses are unremarkable. Post Contrast: No abnormal areas of parenchymal or dural enhancement. No evidence of blood-brain ba rrier breakdown. CONCLUSION: 1. No acute intracranial abnormality. 2. Chronic small vessel ischemic change. Electronically signed by: Pavan Smalls MD 07/02/2018 2:49 PM EDT
--- NOTE | 2018-07-02 15:05 | CT ---
EXAM DATE: 07/02/2018 2:50 PM EDT AGE/SEX: 67 years / Female INDICATIONS: Fell and hit face into door jamb. Bruising around right eye. Missing and broken teeth. CLINICAL DATA: This is the patient's initial encounter. Patient reports that signs and symptoms have been present for 1 day and indicates a pain score of 7/10. MEDICAL/SURGICAL HISTORY: Asthma. Cerebrovascular disease. Parkinson's disease. None. RADIATION DOSE: 29.82 CTDI (mGy) COMPARISON: No prior exams available for comparison. TECHNIQUE: Contiguous images in the axial and coronal planes were obtained using helical multirow de tector technique. Using automated exposure control and adjustment of the mA and/or kV according to p atient size, radiation dose was kept as low as reasonably achievable to obtain optimal diagnostic tammy lity images. DICOM format image data is available electronically for review and comparison. FINDINGS: Orbits: The orbital and infraorbital osseous structures are intact. The retroconal structures have a normal configuration. No radiopaque foreign bodies are seen. Nasal Bone: The nasal bone and maxillary spine are intact. Zygomatic Arches: Symmetric without evidence of fracture. Sinuses: The maxillary, ethmoid, and frontal sinuses are intact. No air-fluid levels seen. Nasal Cavity: The nasal septum is intact and midline. The lacrimal ducts are intact. Soft Tissues: No radiopaque foreign bodies seen. There is mild anterior soft tissue swelling.. Intracranial: No intracranial air seen. Cribriform Plate: Grossly intact. CONCLUSION: 1. Mild soft tissue swelling with no acute fracture or malalignment. Electronically signed by: Edward Bey MD 07/02/2018 3:03 PM EDT
--- NOTE | 2018-07-02 16:08 | ECHRPT ---
Indication: cardiomyopathy CONCLUSIONS The left ventricular systolic function is low normal with an estimated ejection fraction in the rang e of 50- 55%. Normal left ventricular size. Wall thickness is normal. No regional wall motion abnormalities are present. Mitral annular calcification is present. Diffuse calcification of the aortic valve. Trace aortic valve regurgitation. Mild aortic valve stenosis. mean gradient = 18 mm hg Aortic valve area is 0.99 cm. Aortic valve mean gradient is 17 mmHg. The pulmonary valve is not well visualized. BP: / HR: Rhythm: Sinus MEASUREMENTS (Male / Female) Normal Values Technical Quality:Fair 2D ECHO LV Diastolic Diameter PLAX 4.8 cm 4.2 - 5.9 / 3.9 - 5.3 cm LV Systolic Diameter PLAX 3.7 cm IVS Diastolic Thickness 1.0 cm 0.6 - 1.0 / 0.6 - 0.9 cm LVPW Diastolic Thickness 1.0 cm 0.6 - 1.0 / 0.6 - 0.9 cm LV Relative Wall Thickness 0.4 LVOT Diameter 1.9 cm LA Systolic Diameter LX 3.5 cm 3.0 - 4.0 / 2.7 - 3.8 cm LV Ejection Fraction MOD 4C 54.1 % LV Ejection Fraction 4C AL 55.4 % M-MODE Aortic Root Diameter MM 2.2 cm LA Systolic Diameter MM 2.9 cm LA Ao Ratio MM 1.3 AV Cusp Separation MM 1.3 cm DOPPLER AV Peak Velocity 275.5 cm/s AV Peak Gradient 30.4 mmHg AV Mean Gradient 17.0 mmHg AV Velocity Time Integral 53.6 cm AI Peak Velocity 339.0 cm/s AI Peak Gradient 46.0 mmHg AI Pressure Half Time 709.0 ms LVOT Peak Velocity 88.0 cm/s LVOT Peak Gradient 3.1 mmHg LVOT Velocity Time Integral 18.8 cm AV Area Cont Eq vti 1.0 cm AV Area Cont Eq pk 0.9 cm MV Area PHT 3.8 cm Mitral E Point Velocity 80.9 cm/s Mitral A Point Velocity 115.0 cm/s Mitral E to A Ratio 0.7 LV E' Lateral Velocity 3.4 cm/s Mitral E to LV E' Lateral Ratio 23.7 LV E' Septal Velocity 4.1 cm/s Mitral E to LV E' Septal Ratio 19.8 TR Peak Velocity 130.0 cm/s TR Peak Gradient 6.8 mmHg PV Peak Velocity 84.2 cm/s PV Peak Gradient 2.8 mmHg FINDINGS LEFT VENTRICLE The left ventricular systolic function is low normal with an estimated ejection fraction in the rang e of 50- 55%. Normal left ventricular size. Wall thickness is normal. No regional wall motion abnormalities are present. RIGHT VENTRICLE Normal right ventricular size and systolic function. LEFT ATRIUM The left atrial size is normal. RIGHT ATRIUM The right atrial size is normal. ATRIAL SEPTUM Normal atrial septal thickness without atrial level shunting by limited color doppler interrogation. AORTA The aortic root and proximal ascending aorta are normal in size on limited imaging. MITRAL VALVE Structurally normal mitral valve. Mitral annular calcification is present. AORTIC VALVE Trileaflet aortic valve. Diffuse calcification of the aortic valve. Trace aortic valve regurgitation. Mild aortic valve stenosis. Aortic valve area is 0.99 cm. Aortic valve mean gradient is 17 mmHg. TRICUSPID VALVE Structurally normal tricuspid valve. No tricuspid valve stenosis or regurgitation. PULMONARY VALVE The pulmonary valve is not well visualized. VESSELS The inferior vena cava is normal in size. PERICARDIUM No pericardial effusion. Graham Rodríguez MD, FACC, [facility] [place] (Electronically Signed) Final Date:02 July 2018 16:07
[2018-07-02] MEDS ORDERED: Acetaminophen 325 MG Tablet PO PRN (16:40)
[2018-07-02 17:51] LABS: Hemoglobin A1c 16.3 % (4.3-6.0)
[2018-07-02] MEDS ORDERED: Insulin Detemir Inj 1,000 UNIT/10 ML Vial SQ SCH (21:00)
--- NOTE | 2018-07-02 22:38 | ECG ---
Date Performed: 07/01/2018 Time Performed: 14:52:50 PTAGE: 67 years EKG: SINUS TACHYCARDIA POSSIBLE LEFT ATRIAL ENLARGEMENT LEFT ANTERIOR FASCICULAR BLOCK ANTEROSEP MONA MYOCARDIAL INFARCTION ABNORMAL ECG PREVIOUS TRACING : 06/04/2014 14.15 Compared to previous tracing, SINUS TACHYCARDIA IS NEW DOCTOR: Michael King Interpretating Date/Time 07/02/2018 22:36:56
[2018-07-03 05:59] LABS: Anion Gap 10 meq/L (5-15); Blood Urea Nitrogen 8 mg/dL (7-18); Calcium 8.2 mg/dL (8.5-10.1); Carbon Dioxide 22.5 meq/L (21.0-32.0); Chloride 105 meq/L (98-107); Glomerular Filtration Rate Greater Than 89 mL/min (>89); Glucose,Random 145 mg/dL (74-106); Sodium 137 meq/L (136-145)
[2018-07-03 06:03] LABS: Potassium 2.6 meq/L (3.5-5.1)
[2018-07-03 08:04] LABS: Calcium 8.1 mg/dL (8.5-10.1); Carbon Dioxide 22.6 meq/L (21.0-32.0); Magnesium 1.8 mg/dL (1.5-2.5)
[2018-07-03 08:06] LABS: Potassium 2.7 meq/L (3.5-5.1)
[2018-07-03] MEDS: Insulin NovoLOG Aspart Correctional Sugar Inj SQ SCH ×3 (08:14→17:00)
[2018-07-03] MEDS: QUEtiapine 25 MG Tablet PO SCH (08:14)
[2018-07-03] MEDS: Potassium Chlor 20 mEq Premix 20 MEQ/100 ML PIGGYBACK IV.SIG SCH ×2 (08:15→10:30)
--- NOTE | 2018-07-03 08:40 | P.PNIM ---
Subjective Interval history: Patient seen and evaluated. She appears to have improved. Blood sugars improved. Some hypokalemia this morning. Still very weak. Discussed with family and nursing team Physical Exam Vital signs: Vital Signs 07/02/18 09:00 07/02/18 12:00 07/02/18 16:00 Temperature 98.4 F 98.6 F Pulse Rate 102 H 82 Respiratory Rate 10 L Blood Pressure 159/78 H Pulse Oximetry 99 07/02/18 20:00 07/02/18 20:38 07/03/18 00:00 Temperature 98.4 F 98.4 F Pulse Rate 94 H 80 Respiratory Rate 20 18 Blood Pressure 102/55 L 134/63 Pulse Oximetry 100 99 99 07/03/18 07:32 Temperature Pulse Rate Respiratory Rate Blood Pressure Pulse Oximetry 100 Intake & Output 07/02/18 07/03/18 07/03/18 18:59 06:59 18:59 Intake Total 1280 / 1280 480 / 480 Output Total 1700 / 1700 2400 / 2400 Balance -420 / -420 -1920 / -1920 Weight 57.6 kg Intake: Oral 1280 / 1280 480 / 480 Output: Urine 1700 / 1700 2400 / 2400 Stool 0 / 0 Other: Date of Last Bowel Movement 07/02/18 07/02/18 Narrative: GENERAL: Frail, well-developed patient. SKIN: Multiple ecchymoses HEAD: Normocephalic. EYES: No scleral icterus. No injection or drainage. NECK: Supple, trachea midline. No JVD or lymphadenopathy. CARDIOVASCULAR: Regular rate and rhythm without murmurs, gallops, or rubs. RESPIRATORY: Breath sounds equal bilaterally. No accessory muscle use. GASTROINTESTINAL: Abdomen soft, non-tender, nondistended. MUSCULOSKELETAL: No cyanosis, or edema. BACK: Nontender without obvious deformity. No CVA tenderness. NEUROLOGICAL: Awake and alert. Cranial nerves II through XII intact. Motor and sensory grossly within normal limits. Five out of 5 muscle strength in all muscle groups. Normal speech. Results - Labs CBC & Chem 7: 07/02/18 10:20 07/03/18 07:20 Laboratory Results - last 24 hr 07/01/18 07/02/18 07/02/18 15:00 10:20 10:20 WBC 7.6 RBC 3.83 L Hgb 8.3 L Hct 25.5 L MCV 66.7 L MCH 21.6 L MCHC 32.4 RDW 17.2 Plt Count 357 MPV 7.9 Sodium Potassium Chloride Carbon Dioxide Anion Gap BUN Creatinine Estimated GFR POC Glucose Random Glucose Hemoglobin A1c 16.3 H Calcium Magnesium Digoxin Less than 0.1 L 07/02/18 07/02/18 07/02/18 11:53 16:25 20:40 WBC RBC Hgb Hct MCV MCH MCHC RDW Plt Count MPV Sodium Potassium Chloride Carbon Dioxide Anion Gap BUN Creatinine Estimated GFR POC Glucose 226 H 387 H 476 H* Random Glucose Hemoglobin A1c Calcium Magnesium Digoxin 07/03/18 07/03/18 07/03/18 04:58 07:20 07:24 WBC RBC Hgb Hct MCV MCH MCHC RDW Plt Count MPV Sodium 137 135 L Potassium 2.6 L* D 2.7 L* Chloride 105 D 104 Carbon Dioxide 22.5 22.6 Anion Gap 10 8 BUN 8 7 Creatinine 0.66 0.71 Estimated GFR Greater than 89 82 L POC Glucose 223 H Random Glucose 145 H 182 H Hemoglobin A1c Calcium 8.2 L 8.1 L Magnesium 1.8 Digoxin - Imaging Impressions Face CT 07/02/18 00:00 CONCLUSION: 1. Mild soft tissue swelling with no acute fracture or malalignment. Head MRI 07/02/18 00:00 CONCLUSION: 1. No acute intracranial abnormality. 2. Chronic small vessel ischemic change. Assessment and Plan - Assessment (1) Acute metabolic encephalopathy Code(s): G93.41 - Metabolic encephalopathy Status: Acute Plan: Appears resolved, patient dehydrated and still taking her blood pressure medications. This is improved with IV hydration MRI negative Patient will need outpatient neurology follow (2) Hyperglycemia Code(s): R73.9 - Hyperglycemia, unspecified Status: Acute Plan: Home medications have been held (3) Type 2 diabetes mellitus Code(s): E11.9 - Type 2 diabetes mellitus without complications Status: Acute Plan: Patient's blood sugar has been quite erratic. She is in a controlled environment and less insulin compared to her home regimen (4) Parkinsons disease Code(s): G20 - Parkinson's disease Status: Acute - Plan Discharge Planning: Likely discharge with home health in a.m.
[2018-07-03] MEDS ORDERED: buPROPion 150 MG 12 HR Tablet PO SCH (09:00)
[2018-07-03] MEDS ORDERED: Digoxin 250 MCG Tablet PO SCH (09:00)
[2018-07-03] MEDS: Sodium Chloride 0.45 % Inj 1,000 ML IV.CONT SCH (10:31)
--- NOTE | 2018-07-03 13:17 | P.DIET ---
Nutritional Evaluation Type of nutrition evaluation: initial Nutrition screening: Weight Loss > 10 lbs Screening comments: reported 20-lb wt loss over last month Subjective Subjective Comments: Pt visited, nursing and family in room. Pt reports no problem chewing s/p mechanical fall losing multiple teeth. Pt receptive to receiving Glucerna Shake. Objective - Diagnosis Hyperglyciema, AMS, Failure to Thrive, Anxiety - Indications of Malnutrition Characteristics: Weight loss - Objective [place] body weight: 59.1 kg % IBW: 100 Body Weight Used for Calculations: Actual (59.2 kg) Energy Needs - Lower Range (kCal/kg): 25 Energy Needs - Upper Range (kCal/kg): 30 Lower Limit kCal/kg (kCals): 1,480 Upper Limit kCal/kg (kCals): 1,776 Lower Limit Protein Factor (Grams per Kg): 1.0 Upper Limit Protein Factor (Grams per Kg): 1.3 Lower Protein Needs (Protein): 59 Upper Protein Needs (Protein): 77 Dietitian Reviewed in Medical Record: Current diet, Curent medications, Intake & Output, Labs, Medical history Diet Order: 1800ADA Oral Diet Intake Amount: Good 75-90% Objective Comments: PMH: Asthma, CAD, CVA, DM, HTN, Parkinsons, h/o alcohol abuse Labs Include: A1C 16.3, Accucheck 223, 288 Meds Include: Coreg, Catapres, Haldol, Novolog, Levemir, Seroquel LBM 07/02 Assessment Assessment: Pt is at nutritional risk r/t diagnosis and recent unintentional wt loss. Pt appears thinner than current documented wt. Adequate po intake 50% or greater for meals recorded. Send Glucerna Shakes w/meals(= 220 kcal and 10g protein per serving). Labs reviewed-elevated A1C noted. Dietitian will follow. Recommendations: 1.Send Glucerna Shakes w/meals 2.Dietitian will follow Dietitian to Monitor: Lab values, Glucose level, Supplement acceptance, Intake & Output, Diet tolerance, Weight change, PO Intake, Medical course
[2018-07-03 13:48] VITALS: TEMP 98.1
--- NOTE | 2018-07-03 14:32 | P.DCO ---
- Physical Therapy Order: Evaluate and treat, Improve ambulation, Strength and gait training - Certification I have seen patient Sofy Hodges on 07/03/18. My clinical findings support the need for the requested home health care services because: Medication compliance is questionable, Impaired cognition/judgement I certify that my clinical findings support that this patient is homebound because: Unsteady gait/balance
[2018-07-03 16:24] VITALS: BP 154/84; PULSE 80; RESP 32; O2SAT 97
== END 2018-07-03 18:37 | disposition home health service (06) ==
LOC: PHED 14:18 → PHEDA 16:40 → PHICU 17:47
PROVIDERS: ADMIT Hospitalist; ATTEND Hospitalist